=== PATIENT | female | born 1975 | race Caucasian/White ===

== ENCOUNTER 2017-04-07 13:08 | Emergency (ER) | payer SELFPAY ==
[2017-04-07 13:18] VITALS: BP 152/86; PULSE 90; TEMP 98.8; BMI 34.9
--- NOTE | 2017-04-07 14:00 | PDOC ---
History of Present Illness - General Chief Complaint: Abscess Boil Stated Complaint: BLEEDING CYST Time Seen by Provider: 04/07/17 13:22 History Source: Patient - History of Present Illness Timing/Duration: reports: week Location: reports: other (gluteus) Past History - Past Medical History Allergies/Adverse Reactions: Allergies Allergy/AdvReac Type Severity Reaction Status Date / Time No Known Allergies Allergy Verified 04/07/17 13:17 Home Medications: Ambulatory Orders Atorvastatin Ca [Lipitor] 10 mg PO HS 04/07/17 Clindamycin [Cleocin -] 300 mg PO Q6HPO #28 capsule 04/07/17 Insulin Glargine,Hum.rec.anlog [Lantus (10mL VIAL) -] 100 units SQ ASDIR Insulin Lispro [Humalog] 100 units SQ ASDIR 04/07/17 Metformin HCl 500 mg PO ASDIR 04/07/17 Metoprolol Tartrate 25 mg PO ASDIR 04/07/17 Pioglitazone HCl [Actos] 15 mg PO DAILY 04/07/17 Cardiac Disorders: Yes Diabetes: Yes - Surgical History Appendectomy: Yes GI Surgery: Yes - Psycho/Social/Smoking Cessation Hx Suicidal Ideation: No Smoking History: Never smoked Information on smoking cessation initiated: No Review of Systems - Review of Systems Constitutional: No: Chills, Fever *Physical Exam - Vital Signs Last Vital Signs Temp Pulse Resp BP Pulse Ox 98.8 F 90 18 152/86 99 04/07/17 13:14 04/07/17 13:14 04/07/17 13:14 04/07/17 13:14 04/07/17 13:14 - Physical Exam General Appearance: Yes: Appropriately Dressed. No: Apparent Distress HEENT: positive: Normal Voice Neck: positive: Supple Respiratory/Chest: negative: Respiratory Distress Integumentary: positive: Dry, Warm, Other (2x2cm draining abscess, no large induration, no surrounding erythema) Neurologic: positive: Fully Oriented, Alert, Normal Mood/Affect Medical Decision Making - Medical Decision Making 04/07/17 13:54 41 yo F, h/o IDDM, recurrent abscesses, p/w draining abscess to R gluteus x 1 week. Here for eval at urging of her family per pt. Denies any sig pain, f/c. See exam Draining abscesses to R gluteus No surrounding erythema -Local wound care and dressing -dc a/ abx given DM and complicated abscess in the past -Tetanus UTD -wound check in 48 hrs 04/07/17 14:02 *DC/Admit/Observation/Transfer Diagnosis at time of Disposition: Gluteal abscess - Discharge Dispostion Disposition: HOME Condition at time of disposition: Good - Prescriptions Prescriptions: Clindamycin [Cleocin -] 300 mg PO Q6HPO #28 capsule - Patient Instructions Printed Discharge Instructions: DI for Skin Abscess Additional Instructions: Take antibiotics as directed and return for wound check in 2 days
== END 2017-04-07 13:56 | disposition home or self-care (01) ==
LOC: JERFT 13:08
DX: L02.31 Cutaneous abscess of buttock (principal); E11.9 Type 2 diabetes mellitus without complications; Z79.4 Long term (current) use of insulin; Z79.84 Long term (current) use of oral hypoglycemic drugs
CPT/HCPCS: 99281-25

== ENCOUNTER 2017-04-10 15:35 | Emergency (ER) | payer SELFPAY ==
[2017-04-10 15:39] VITALS: BP 121/67; PULSE 93; TEMP 98; BMI 34.9
--- NOTE | 2017-04-10 16:37 | PDOC ---
History of Present Illness - General Chief Complaint: Revisit,Wound Recheck Stated Complaint: FOLLOW-UP/ WOUND CARE Time Seen by Provider: 04/10/17 15:55 History Source: Patient Exam Limitations: No Limitations - History of Present Illness Initial Comments: 04/10/17 16:36 Patient is a 41-year-old female with history of insulin-dependent diabetes, who presents to the emergency department for a wound check. Patient was seen 2 days ago for incision and drainage of a left gluteal fold abscess. Patient states that she feels much better since having the I&D done. Reports mild drainage from the wound that has slowed since Sunday. Denies fevers, chills. Patient states she is taking her antibiotic as prescribed. Past History - Travel Traveled outside of the country in the last 30 days: No Close contact w/someone who was outside of country & ill: No - Past Medical History Allergies/Adverse Reactions: Allergies Allergy/AdvReac Type Severity Reaction Status Date / Time No Known Allergies Allergy Verified 04/10/17 15:39 Home Medications: Ambulatory Orders Atorvastatin Ca [Lipitor] 10 mg PO HS 04/07/17 Clindamycin [Cleocin -] 300 mg PO Q6HPO #28 capsule 04/07/17 Insulin Glargine,Hum.rec.anlog [Lantus (10mL VIAL) -] 100 units SQ ASDIR Insulin Lispro [Humalog] 100 units SQ ASDIR 04/07/17 Metformin HCl 500 mg PO ASDIR 04/07/17 Metoprolol Tartrate 25 mg PO ASDIR 04/07/17 Pioglitazone HCl [Actos] 15 mg PO DAILY 04/07/17 Cardiac Disorders: Yes (3 stents, [place]) Diabetes: Yes Other medical history: Arthritis - Surgical History Appendectomy: Yes Cardiac Surgery: Yes GI Surgery: Yes - Psycho/Social/Smoking Cessation Hx Suicidal Ideation: No Smoking History: Never smoked Information on smoking cessation initiated: No Hx Alcohol Use: No Drug/Substance Use Hx: No Substance Use Type: None Review of Systems - Review of Systems Able to Perform ROS?: Yes Is the patient limited Hungarian proficient: No Constitutional: No: Chills, Fever, Malaise Integumentary: No: Erythema, Pruritus, Rash *Physical Exam - Vital Signs Last Vital Signs Temp Pulse Resp BP Pulse Ox 98 F 93 H 18 121/67 99 04/10/17 15:37 04/10/17 15:37 04/10/17 15:37 04/10/17 15:37 04/10/17 15:37 - Physical Exam General Appearance: Yes: Nourished, Appropriately Dressed. No: Apparent Distress Integumentary: positive: Dry, Warm, Other (2 cm linear incision on the left gluteal fold appears clean, with pink edges, with no purulent drainage. Wound is open and covered with a 2 x 2 gauze. Wound is healing well at this time.). negative: Erythema, Moist, Rash Neurologic: positive: crate maker II-XII NML intact, Fully Oriented, Alert, Normal Mood/ Affect, Normal Response, Motor Strength 03/16 Medical Decision Making - Medical Decision Making 04/10/17 17:01 Patient is an insulin-dependent diabetic who presents to the emergency department for a wound check after an incision and drainage 2 days ago. The wound appears clean with no active drainage. Patient is still taking her antibiotics at this time. Nothing further needs to be done at this time. Instructed patient to keep the area clean and dry and covered. Patient is to continue her antibiotics and follow up with her primary care doctor in 1 week. Patient was instructed on signs of infection including fevers, chills, purulent drainage understands if she has any of the she is to return to the emergency department. Patient understands all discharge instructions and all questions were answered at this time. *DC/Admit/Observation/Transfer Diagnosis at time of Disposition: Wound check, abscess - Discharge Dispostion Disposition: HOME Condition at time of disposition: Stable Admit: No - Referrals Referrals: STAFF,NOT ON [Primary Care Provider] - - Patient Instructions Printed Discharge Instructions: DI for Skin Abscess Additional Instructions: Continue to take your antibiotics as prescribed. Your abscess is healing well. Continue to keep the area covered, clean and dry. Return to the ED if you have any signs of infection including, fevers, chills, nausea, vomiting, or any changes in your symptoms.
== END 2017-04-10 16:41 | disposition home or self-care (01) ==
LOC: JERFT 15:35
DX: Z09 Encounter for follow-up examination after completed treatment for conditions other than malignant neoplasm (principal); L02.31 Cutaneous abscess of buttock; E11.9 Type 2 diabetes mellitus without complications; Z79.4 Long term (current) use of insulin; Z79.84 Long term (current) use of oral hypoglycemic drugs
CPT/HCPCS: 99281-25

== ENCOUNTER 2017-05-10 12:17 | Observation (INO) | payer SELFPAY ==
[2017-05-10 12:21] VITALS: BMI 34.9
[2017-05-10] MEDS ORDERED: ASPIRIN 81 MG CHEWABLE TABLETS PO ONE (12:52)
--- NOTE | 2017-05-10 13:26 | PDOC ---
History of Present Illness - General History Source: Patient Exam Limitations: No Limitations <Juany Giron - Last Filed: 05/10/17 14:34> <Daniel Clarke - Last Filed: 05/11/17 09:19> - General Chief Complaint: Chest Pain Stated Complaint: CHEST PAIN Time Seen by Provider: 05/10/17 12:52 - History of Present Illness Initial Comments: 05/10/17 14:35 Patient is a 41 year old female with a significant past medical history of IDDM , [place], CAD with [address] since 2014 who presents to the ED with chest pain for 4 days. Patient describes the pain as sharp, twisting, 8/10 in severity , intermittent and non pleuritic. She denies any alleviating factors. Patient states that she has never experienced the following symptoms before this is different from her panic attacks. Patient states that on Sunday she was walking to the bus stop as she developed twisting chest pain that lasted for 15 minutes , yesterday she developed chest pain while cleaning her house that lasted for 1 hour, today she developed the cp while in the shower that is still ongoing while in the ED. She reports SOB and increased weakness. She denies any back pain, nausea, vomiting, diarrhea, diaphoresis, fever, chills or palpitations. PSH:Appendectomy, uterine polyps SH: Smoker (2 cigarettes a day now smoker for 20 years), she denies alcohol use or IVDU. FH: father [place] 45, mother [place] (Juany Giron) Past History <LesterromanJuany ferreira - Last Filed: 05/10/17 14:34> - Past Medical History Cardiac Disorders: Yes (3 stents, [place]) Diabetes: Yes - Surgical History Appendectomy: Yes Cardiac Surgery: Yes (3 stents) GI Surgery: Yes (polyps uterus) - Psycho/Social/Smoking Cessation Hx Suicidal Ideation: No Smoking History: Current every day smoker Number of Cigarettes Smoked Daily: 2 Information on smoking cessation initiated: Yes 'Breaking Loose' booklet given: 05/10/17 Hx Alcohol Use: No Drug/Substance Use Hx: No Substance Use Type: None <Daniel Clarke - Last Filed: 05/11/17 09:19> - Past Medical History Allergies/Adverse Reactions: Allergies Allergy/AdvReac Type Severity Reaction Status Date / Time No Known Allergies Allergy Verified 05/10/17 12:21 Home Medications: Ambulatory Orders Aspirin [ASA -] 81 mg PO DAILY 05/10/17 Clopidogrel Bisulfate [Plavix -] 75 mg PO DAILY 05/10/17 Enalapril Maleate 5 mg PO DAILY 05/10/17 Glipizide 5 mg PO DAILY 05/10/17 Insulin Glargine,Hum.rec.anlog [Lantus (nf)] 50 units SQ HS 05/10/17 Insulin Lispro [Humalog] 15 unit SQ TID 05/10/17 Metoprolol Succinate [Toprol Xl -] 25 mg PO DAILY 05/10/17 Pioglitazone HCl [Actos] 45 mg PO DAILY 05/10/17 Simvastatin 20 mg PO HS 05/10/17 Review of Systems - Review of Systems Able to Perform ROS?: Yes <Juany Giron - Last Filed: 05/10/17 14:34> <Daniel Clarke - Last Filed: 05/11/17 09:19> - Review of Systems Comments:: 05/10/17 14:35 CONSTITUTIONAL: No reported: Fever, Chills, Diaphoresis, Generalized Weakness, Malaise, Loss of Appetite HEENT: No reported: Rhinorrhea, Nasal Congestion, Throat Pain, Throat Swelling, Difficulty Swallowing, Mouth Swelling, Ear Pain, Eye Pain, Visual Changes CARDIOVASCULAR: Reported: chest pain No reported: Syncope, Palpitations, Irregular Heart Rate, Lightheadedness, Peripheral Edema RESPIRATORY: No reported: Cough, Shortness of Breath, SOB with Exertion, Orthopnea, Wheezing , Stridor, Hemoptysis GASTROINTESTINAL: No reported: Abdominal pain, Abdominal Distension, Nausea, Vomiting, Diarrhea, Constipation, Melena, Hematochezia GENITOURINARY: No reported: Dysuria, Frequency, Urgency, Hesitancy, Flank Pain, Genital Pain MUSCULOSKELETAL: No reported: Myalgia, Arthralgia, Joint Swelling, Back pain, Neck Pain SKIN: No reported: Rash, Itching, Pallor HEMEATOLOGIC/IMMUNOLOGIC: No reported: Easy Bleeding, Easy Bruising, Lymphadenopathy, Frequent infections ENDOCRINE: No reported: Unexplained Weight Gain, Unexplained Weight Loss, Heat Intolerance , Cold Intolerance NEUROLOGIC: No reported: Headache, Focal Weakness, Paresthesias, Vertigo, Lightheadedness, Unsteady Gait, Seizure, Mental Status Changes, Incontinence PSYCHIATRIC: No reported: Anxiety, Depression (Juany Giron) *Physical Exam <Juany Giron - Last Filed: 05/10/17 14:34> <Daniel Clarke - Last Filed: 05/11/17 09:19> - Vital Signs Last Vital Signs Temp Pulse Resp BP Pulse Ox 98.4 F 92 H 20 142/77 100 05/11/17 07:31 05/11/17 07:31 05/11/17 07:35 05/11/17 07:31 05/11/17 07:35 - Physical Exam Comments: 05/10/17 14:35 GENERAL: The patient is awake, alert, and fully oriented, Nontoxic - in no acute distress. HEAD: Normocephalic, atraumatic. EYES: extraocular movements intact, sclera anicteric, conjunctiva clear. ENT: Normal voice, Moist mucous membranes. NECK: Normal range of motion, supple LUNGS: Breath sounds equal, clear to auscultation bilaterally. No wheezes, no rhonchi, no rales. HEART: Regular rate and rhythm, normal S1 and S2 without murmur, rub or gallop. ABDOMEN: Soft, nontender, normoactive bowel sounds. No guarding, no rebound. . No CVA tenderness EXTREMITIES: Normal range of motion, no edema. No clubbing or cyanosis. No cords, erythema, or tenderness. NEUROLOGICAL: No facial assymetry, Normal speech, PSYCH: Normal mood, normal affect. SKIN: Warm, Dry, normal turgor (Juany Giron) Heart Score/ECG Review <Juany Giron - Last Filed: 05/10/17 14:34> - History History: Moderately suspicious - Electrocardiogram EKG: Non specific repolarization disturbance - Age Age: </= 45 - Risk Factors Risk Factors Heart Score: Yes Hx Diabetes, Yes Smoking History, Yes Hx Obesity Based on the list above the patient has:: >/=3 risk factors or Hx atherosclerotic disease - Troponin Troponin: </= normal limit - Score Heart Score - Total: 4 <Daniel Clarke - Last Filed: 05/11/17 09:19> - ECG Impressions Comment:: 05/10/17 14:26 Twelve-lead EKG was performed and reviewed by me. There is normal sinus rhythm with a normal rate. Rate of 97 The axis is normal. The intervals are normal. There is normal R wave progression [id number] noted No old EKGs for comparison (Daniel Clarke) ED Treatment Course - LABORATORY CBC & Chemistry Diagram: 05/10/17 13:24 05/10/17 13:24 <Juany Giron - Last Filed: 05/10/17 14:34> - LABORATORY CBC & Chemistry Diagram: 05/11/17 05:35 05/11/17 06:00 <Daniel Clarke - Last Filed: 05/11/17 09:19> - ADDITIONAL ORDERS Additional order review: Laboratory Results 05/10/17 05/10/17 05/10/17 22:19 21:40 21:40 POC Glucometer 458 Creatine Kinase 32 Troponin I 0.02 Beta HCG, Quant < 1.0 05/10/17 05/10/17 05/10/17 22:19 18:09 13:24 RBC 4.47 MCV 87.6 MCHC 32.5 RDW 16.0 H MPV 9.3 Neutrophils % 65.7 Lymphocytes % 23.8 Monocytes % 6.0 Eosinophils % 3.4 Basophils % 1.1 POC Glucometer 458 > 400 - RADIOLOGY Radiology Studies Ordered: Category Date Time Status CHEST X-RAY PORTABLE* [RAD] Stat Radiology 05/10/17 12:52 Completed - Medications Given in the ED: ED Medications Discontinued Medications Generic Name Dose Route Start Last Admin Trade Name Freq PRN Reason Stop Dose Admin Aspirin 162 mg 05/10/17 12:52 05/10/17 13:36 Asa - PO 05/10/17 12:53 162 mg ONCE ONE Administration Atorvastatin Calcium 40 mg 05/10/17 22:00 05/10/17 21:54 Lipitor - PO 40 mg HS RALF Administration Clopidogrel Bisulfate 75 mg 05/10/17 20:00 05/10/17 21:53 Plavix - PO 75 mg DAILY RALF Administration Sodium Chloride 1,000 mls @ 1,000 mls/hr 05/10/17 14:22 05/10/17 14:23 Normal Saline - IV 05/10/17 15:21 1,000 mls/hr .Q1H ONE Administration Insulin Human Regular 8 units 05/10/17 14:22 05/10/17 14:23 Novolin R Vial *For Ivpush Or Iv Drip Only* IVPUSH 05/10/17 14:23 8 units ONCE ONE Administration Insulin Human Regular 8 units 05/10/17 18:10 05/10/17 18:12 Novolin R Vial *For Ivpush Or Iv Drip Only* SQ 05/10/17 18:11 8 units ONCE ONE Administration Metoprolol Succinate 25 mg 05/10/17 20:00 05/10/17 21:54 Toprol Xl - PO 25 mg DAILY RALF Administration Medical Decision Making <Juany Giron - Last Filed: 05/10/17 14:34> <Daniel Clarke - Last Filed: 05/11/17 09:19> - Medical Decision Making 05/10/17 14:26 41y F hx of CAD (3 stents), IDDM, [place], presents with several days of intermittent exertional cp. pt appears well on exam with unremarkable exam vitals noted for mild tachycardia 05/10/17 14:[address] lock agreed with admission for further mangaement stable for tele will consult dr. nguyễn Case discussed in detail with admitting physician including history, physical exam and ancillary studies. Admitting physician has assumed care for the patient, will follow all pending diagnostics and will complete the evaluation and treatment. A portion of this note was documented by scribe services under my direction. I have reviewed the details of the note, within reason, and agree with the documentation with the following case summary and management plan written by me was notified by dr. nguyễn that dr. evangelista comes to [facility] we call his service. case dw dr. barreto (cardiology, covering for dr. Evangelista/Kenneth) agree with management an drequested stress tomorrow A portion of this note was documented by scribe services under my direction. I have reviewed the details of the note, within reason, and agree with the documentation with the following case summary and management plan written by me (Daniel Clarke) *DC/Admit/Observation/Transfer <Juany Giron - Last Filed: 05/10/17 14:34> - Discharge Dispostion Admit: Yes <Daniel Clarke - Last Filed: 05/11/17 09:19> Diagnosis at time of Disposition: Chest pain Qualifiers: Chest pain type: unspecified Qualified Code(s): R07.9 - Chest pain, unspecified - Discharge Dispostion Condition at time of disposition: Stable - Referrals - Patient Instructions - Attestations Scribe Attestion: 05/10/17 14:35 Documentation prepared by STEPHANIA Wilcox, acting as medical technicians for Daniel Clarke MD. (Juany Giron)
[2017-05-10] MEDS ORDERED: ASPIRIN 81 MG CHEWABLE TABLETS ONE (13:30)
[2017-05-10 13:45] LABS: BASOPHIL 1.1 % (0-2.0); EOSINOPHIL 3.4 % (0-4.5); MCH 28.5 pg (25.7-33.7); MCHC 32.5 g/dl (32.0-36.0); MEAN CELL VOLUME 87.6 fl (80-96); MEAN PLT VOLUME 9.3 fl (7.5-11.1); NEUTROPHILS 65.7 % (42.8-82.8); PLATELET COUNT 181 K/MM3 (134-434); WHITE BLOOD COUNT 9.2 K/mm3 (4.0-10.0)
[2017-05-10 14:07] LABS: ALBUMIN 3.2 g/dl (3.4-5.0); ANION GAP 12 (8-16); CO2 25 mmol/L (21-32); CREATININE 0.8 mg/dL (0.55-1.02); MAGNESIUM 1.9 mg/dL (1.8-2.4); SGOT/AST 37 U/L (15-37); SGPT/ALT 81 U/L (12-78)
[2017-05-10 14:08] LABS: INR 0.93 (0.82-1.09); PROTHROMBIN TIME (PATIENT) 10.2 SEC (9.98-11.88)
[2017-05-10 14:13] LABS: ALK PHOS 180 U/L (45-117); BILIRUBIN,TOTAL 0.6 mg/dL (0.2-1.0); TOT PROT 7.3 g/dl (6.4-8.2); TROPONIN I 0.02 ng/ml (0.00-0.05)
[2017-05-10 14:22] LABS: GLUCOSE,RANDOM 538 mg/dL (74-106)
[2017-05-10] MEDS ORDERED: SODIUM CHLORIDE 1,000 ML IV ONE (14:22)
[2017-05-10] MEDS ORDERED: INSULIN REGULAR HUMAN 100 UNITS/ML *VIAL IVPUSH ONE (14:22)
--- NOTE | 2017-05-10 14:59 | EKG ---
Test Reason : Blood Pressure : / mmHG Vent. Rate : 097 BPM Atrial Rate : 097 BPM P-R Int : 126 ms QRS Dur : 080 ms QT Int : 352 ms P-R-T Axes : 053 042 010 degrees QTc Int : 447 ms NORMAL SINUS RHYTHM POSSIBLE LEFT ATRIAL ENLARGEMENT BORDERLINE ECG NO PREVIOUS ECGS AVAILABLE Confirmed by DELANO HOOD, NOREEN ([id number]) on 05/10/2017 2:58:50 PM Referred By: Confirmed By:NOREEN WICK MD
[2017-05-10] MEDS ORDERED: INSULIN REGULAR HUMAN 100 UNITS/ML *VIAL ONE ×2 (17:36→18:14)
--- NOTE | 2017-05-10 17:54 | CON.CARD ---
Cardiology Consult (text) - Consultation Consultation Note: CC: CP 41 yo smoker with h/o uncontrolled IDDM (dx at 31 yo), [place], CAD with [address] since 2014 p/w chest pain Noted to be severely hyperglycemic here. 3 episodes over the past 4 days. 15 min - 1 hr. One while walking, two while taking shower. Sharp discomfort. non-radiating. non-pleuritic, non-positional + assoc sob. Did not check her bp during episode. no home bp checks. no recent viral infection, poor po intake. No orthopnea, pnd, le edema, palps, dizziness, bleeding transient neurologic sx' s She denies nausea, vomiting, diarrhea, diaphoresis, fever, chills, sweats, headache, cough, congestion. Denies missing doses of ASA, plavix. (although has not taken any of her meds today). Currently cp free. Cards: Dr. Aristeo Reese PMHx: per hpi PSH:Appendectomy, uterine polyps SH: Smoker (2 cigarettes a day now smoker for 20 years), she denies alcohol use or IVDU. FH: father [place] 45, mother [place] ros: per hpi Ambulatory Orders Aspirin [ASA -] 81 mg PO DAILY 05/10/17 Clopidogrel Bisulfate [Plavix -] 75 mg PO DAILY 05/10/17 Enalapril Maleate 5 mg PO DAILY 05/10/17 Glipizide 5 mg PO DAILY 05/10/17 Insulin Glargine,Hum.rec.anlog [Lantus (nf)] 50 units SQ HS 05/10/17 Insulin Lispro [Humalog] 15 unit SQ TID 05/10/17 Metoprolol Succinate [Toprol Xl -] 25 mg PO DAILY 05/10/17 Pioglitazone HCl [Actos] 45 mg PO DAILY 05/10/17 Simvastatin 20 mg PO HS 05/10/17 Vital Signs - 24 hr 05/10/17 12:20 Temperature 97.9 F Pulse Rate 109 H Respiratory 18 Rate Blood Pressure 144/78 O2 Sat by Pulse 99 Oximetry (%) Intake & Output 05/08/17 05/09/17 05/10/17 05/11/17 07:59 07:59 07:59 07:59 Weight 230 lb nad, calm jvd flat, neck supple CTAB, nl effort tachycardic, regular. nl s1, s2 no mrg + bs soft nt nd obese ext without e/c/c + dp/pt aaox3 no carotid bruits no jaundice, diaphoresis CBC, BMP 05/10/17 13:24 05/10/17 13:24 Laboratory Tests 05/10/17 05/10/17 05/10/17 13:24 13:24 14:27 INR 0.93 D-Dimer < 200 Magnesium 1.9 Total Bilirubin 0.6 AST 37 ALT 81 H Alkaline Phosphatase 180 H Creatine Kinase 33 Troponin I 0.02 Albumin 3.2 L EKG: wnl tele: sr/sinustach. one atrial run. 41 yo smoker with h/o uncontrolled CAD s/p 3 stents 2014, HTN, IDDM (dx at 31 yo) p/w chest pain CP - currently cp free - high risk with known CAD. original stents placed after abnormal ekg --> stress --> cath. Was asx. - EKG wnl. first CE's wnl. Con't DIANN, tele - Echo - stress test in am. 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 - resume asa, plavix (will give dose today), statin (will uptitrate dose), BB, ACEI HTN - resume metoprolol, enalapril. monitor. tobacco - cessation counseling Hyperglycemia - Dm mgm't per pmd
[2017-05-10] MEDS ORDERED: INSULIN REGULAR HUMAN 100 UNITS/ML *VIAL SQ ONE (18:10)
[2017-05-10] MEDS ORDERED: CLOPIDOGREL BISULFATE 75 MG TABLET (FP) PO SCH (20:00)
[2017-05-10] MEDS ORDERED: METOPROLOL SUCCINATE 25 MG TAB.SR.24H (FP) PO SCH (20:00)
[2017-05-10] MEDS ORDERED: ATORVASTATIN CA 40 MG TABLET (FP) PO SCH (22:00)
[2017-05-10 22:32] LABS: TROPONIN I 0.02 ng/ml (0.00-0.05)
[2017-05-10] MEDS ORDERED: ATORVASTATIN CA 10 MG TABLET (FP) PO SCH (22:45)
[2017-05-10] MEDS ORDERED: INSULIN DETEMIR 100 UNITS/ML MDV SQ SCH (22:45)
[2017-05-10] MEDS: INSULIN SLIDING SCALE (NOVOLOG) 1 VIAL SQ SCH (23:02)
[2017-05-11] MEDS ORDERED: INSULIN SLIDING SCALE (NOVOLOG) 1 VIAL SQ SCH (07:00)
[2017-05-11] MEDS ORDERED: metFORMIN HCL 500 MG TABLET (FP) PO SCH (07:00)
[2017-05-11] MEDS ORDERED: glipiZIDE 5 MG TABLET (FP) PO SCH (07:00)
[2017-05-11] MEDS: INSULIN SLIDING SCALE (NOVOLOG) 1 VIAL SQ SCH ×3 (07:26→15:55)
[2017-05-11 07:37] LABS: BASOPHIL 0.2 % (0-2.0); EOSINOPHIL 4.6 % (0-4.5); MCH 28.8 pg (25.7-33.7); MCHC 33.4 g/dl (32.0-36.0); MEAN CELL VOLUME 86.4 fl (80-96); MEAN PLT VOLUME 9.7 fl (7.5-11.1); NEUTROPHILS 54.7 % (42.8-82.8); PLATELET COUNT 177 K/MM3 (134-434); WHITE BLOOD COUNT 8.6 K/mm3 (4.0-10.0)
[2017-05-11 08:33] LABS: ALBUMIN 2.8 g/dl (3.4-5.0); ANION GAP 10 (8-16); CALCIUM 8.5 mg/dL (8.5-10.1); CO2 25 mmol/L (21-32)
[2017-05-11 08:42] LABS: ALK PHOS 147 U/L (45-117); BILIRUBIN,TOTAL 0.6 mg/dL (0.2-1.0); CREATININE 0.6 mg/dL (0.55-1.02); SGOT/AST 48 U/L (15-37); SGPT/ALT 68 U/L (12-78); TOT PROT 6.4 g/dl (6.4-8.2); TROPONIN I < 0.02 ng/ml (0.00-0.05)
[2017-05-11 09:15] LABS: GLUCOSE,RANDOM 311 mg/dL (74-106)
[2017-05-11] MEDS ORDERED: CLOPIDOGREL BISULFATE 75 MG TABLET (FP) PO SCH (10:00)
[2017-05-11] MEDS ORDERED: METOPROLOL SUCCINATE 25 MG TAB.SR.24H (FP) PO SCH (10:00)
[2017-05-11] MEDS ORDERED: HEPARIN NA (PORCINE) 5,000 UNITS/ML 1ML VIAL SQ SCH (10:00)
[2017-05-11] MEDS ORDERED: ASPIRIN 81 MG CHEWABLE TABLETS PO SCH (10:00)
[2017-05-11] MEDS ORDERED: ASPIRIN COATED 81 MG TABLET.EC PO SCH (10:00)
[2017-05-11] MEDS ORDERED: ENALAPRIL MALEATE 5 MG TABLET (FP) PO SCH ×2 (10:00)
--- NOTE | 2017-05-11 12:07 | HP ---
Admitting History and Physical - Smoking History Smoking history: Current every day smoker Aproximately how many cigarettes per day: 2 - Alcohol/Substance Use Hx Alcohol Use: No Home Medications - Allergies Allergies/Adverse Reactions: Allergies Allergy/AdvReac Type Severity Reaction Status Date / Time No Known Allergies Allergy Verified 05/10/17 12:21 - Home Medications Home Medications: Ambulatory Orders Aspirin [ASA -] 81 mg PO DAILY 05/10/17 Clopidogrel Bisulfate [Plavix -] 75 mg PO DAILY 05/10/17 Enalapril Maleate 5 mg PO DAILY 05/10/17 Glipizide 5 mg PO DAILY 05/10/17 Insulin Glargine,Hum.rec.anlog [Lantus (nf)] 50 units SQ HS 05/10/17 Insulin Lispro [Humalog] 15 unit SQ TID 05/10/17 Metoprolol Succinate [Toprol Xl -] 25 mg PO DAILY 05/10/17 Pioglitazone HCl [Actos] 45 mg PO DAILY 05/10/17 Simvastatin 20 mg PO HS 05/10/17 Physical Examination Vital Signs: Vital Signs Temperature 98.4 F 05/11/17 07:31 Pulse Rate 92 H 05/11/17 07:31 Respiratory Rate 20 05/11/17 07:35 Blood Pressure 142/77 05/11/17 07:31 O2 Sat by Pulse Oximetry (%) 100 05/11/17 07:35 Labs: CBC, BMP 05/11/17 05:35 05/11/17 06:00
--- NOTE | 2017-05-11 13:56 | CON.CARD ---
Consult Consult Specialty:: cardiology Referred by:: Kieran Fernández Reason for Consultation:: Chest pain - History of Present Illness Chief Complaint: Chest pain History of Present Illness: The patient is a 41-year-old female, former smoker, with history of diabetes, hypertension, hyperlipidemia, coronary artery disease, now presenting with exertional chest pains. The patient ruled out for myocardial infarction. She is currently comfortable and symptom free. Cardiac catheterization 01/14/2015 showed significant mid LAD disease and occluded right coronary artery with right to left collaterals. The patient received stens to the proximal and mid LAD. On 01/25/2015 the patient was readmitted to the CCU following stenting of the RCA complicated by dissection. There was also a perforation of the marginal branch. This sealed on its own. Earlier today the patient had a nuclear stress test which showed a small and mild, reversible defect, of the basal inferior wall. - History Source History Provided By: Patient, Medical Record Limitations to Obtaining History: No Limitations - Past Medical History Cardio/Vascular: Yes: CAD, HTN - Alcohol/Substance Use Hx Alcohol Use: No - Smoking History Smoking history: Former smoker Have you smoked in the past 12 months: No Aproximately how many cigarettes per day: 2 Home Medications - Allergies Allergies/Adverse Reactions: Allergies Allergy/AdvReac Type Severity Reaction Status Date / Time No Known Allergies Allergy Verified 05/10/17 12:21 - Home Medications Home Medications: Ambulatory Orders Aspirin [ASA -] 81 mg PO DAILY 05/10/17 Clopidogrel Bisulfate [Plavix -] 75 mg PO DAILY 05/10/17 Enalapril Maleate 5 mg PO DAILY 05/10/17 Glipizide 5 mg PO DAILY 05/10/17 Insulin Glargine,Hum.rec.anlog [Lantus (nf)] 50 units SQ HS 05/10/17 Insulin Lispro [Humalog] 15 unit SQ TID 05/10/17 Metoprolol Succinate [Toprol Xl -] 25 mg PO DAILY 05/10/17 Pioglitazone HCl [Actos] 45 mg PO DAILY 05/10/17 Simvastatin 20 mg PO HS 05/10/17 Review of Systems - Review of Systems Constitutional: reports: No Symptoms Eyes: reports: No Symptoms HENT: reports: No Symptoms Neck: reports: No Symptoms Cardiovascular: reports: Chest Pain Respiratory: reports: No Symptoms Gastrointestinal: reports: No Symptoms Genitourinary: reports: No Symptoms Breasts: reports: No Symptoms Reported Musculoskeletal: reports: No Symptoms Integumentary: reports: No Symptoms Neurological: reports: No Symptoms Endocrine: reports: No Symptoms Hematology/Lymphatic: reports: No Symptoms Psychiatric: reports: No Symptoms - Risk Factors Known Risk Factors: Yes: Diabetes Mellitus, Family History, Hypercholesterolemia , Hypertension Vital Signs: Vital Signs Temperature 98.4 F 05/11/17 07:31 Pulse Rate 92 H 05/11/17 07:31 Respiratory Rate 20 05/11/17 07:35 Blood Pressure 142/77 05/11/17 07:31 O2 Sat by Pulse Oximetry (%) 100 05/11/17 07:35 Constitutional: Yes: Well Nourished, No Distress, Calm Eyes: Yes: WNL HENT: Yes: WNL Neck: Yes: WNL Respiratory: Yes: WNL Gastrointestinal: Yes: WNL Cardiovascular: Yes: WNL, Regular Rate and Rhythm JVD: No Carotid Bruit: No PMI: Non-Displaced Heart Sounds: Yes: S1, S2 Musculoskeletal: Yes: WNL Extremities: Yes: WNL Edema: No Peripheral Pulses: 2+ Left Carotid, 2+ Right Carotid, 2+ Left Femoral, 2+ Right Femoral, 2+ Left Popliteal, 2+ Right Popliteal Integumentary: Yes: WNL Neurological: Yes: WNL ...Motor Strength: WNL Psychiatric: Yes: WNL - Other Data Labs, Other Data: CBC, BMP 05/11/17 05:35 05/11/17 06:00 INR, PTT INR 0.93 (0.82-1.09) 05/10/17 13:24 Troponin, BNP 05/11/17 06:00 Troponin I < 0.02 Troponin, BNP 05/11/17 06:00 Troponin I < 0.02 Assessment/Plan 41-year-old female with known coronary artery disease, prior stents of the LAD and RCA, now presenting with exertional chest pains which are new. The patient is currently status post an exercise stress test. It showed small and mild reversible defect of the basal inferior wall. There is no need to pursue cardiac catheterization at this point. We'll attempt to maximize her medical regimen. Please increase Toprol-XL from 25-50 mg daily. Start Imdur 30 mg daily. Continue the other medications as currently. There is no need for further cardiac workup at this point. I believe that the patient is stable for discharge. Please call us PRN.
[2017-05-11 14:42] VITALS: BP 109/65; PULSE 91; TEMP 98.9
[2017-05-11] MEDS ORDERED: ATORVASTATIN CA 10 MG TABLET (FP) PO SCH (22:00)
== END 2017-05-11 16:23 | disposition home or self-care (01) ==
LOC: JER 12:17 → JERBED 14:55 → UNDOADMOB 14:55 → J4W 19:15 → JERBED 19:15 → OBSVTOIN 22:33 → INTOOBSV 22:33 → J4W 22:33
PROVIDERS: ADMIT Internal Medicine; ATTEND Internal Medicine
CPT/HCPCS: 36415; 71010-TC; 78452-TC; 80053; 82550; 83036; 83735; 84484; 84702; 85025; 85379; 85610; 93005; 93010; 93017; 93306-TC; 99283-25; A9502; G0378; J1644

== ENCOUNTER 2019-07-16 11:56 | Emergency (ER) | payer OTHER ==
[2019-07-16 12:16] VITALS: BP 119/68; PULSE 99; TEMP 99; BMI 32.4
--- NOTE | 2019-07-16 12:27 | PDOC ---
History of Present Illness - General Chief Complaint: Abscess Boil Stated Complaint: HEAD PAIN Time Seen by Provider: 07/16/19 12:17 - History of Present Illness Initial Comments: 07/16/19 12:26 43-year-old female with a past medical history of diabetes coronary artery disease presents for evaluation of a tender area on her scalp 2. Which has been present for about the last 2 weeks. She has no systemic symptoms. Past History - Past Medical History Allergies/Adverse Reactions: Allergies Allergy/AdvReac Type Severity Reaction Status Date / Time No Known Allergies Allergy Verified 05/10/17 12:21 Home Medications: Ambulatory Orders Aspirin [ASA -] 81 mg PO DAILY 05/10/17 Clopidogrel Bisulfate [Plavix -] 75 mg PO DAILY 05/10/17 Enalapril Maleate 5 mg PO DAILY 05/10/17 Glipizide 5 mg PO DAILY 05/10/17 Insulin Glargine,Hum.rec.anlog [Lantus (10mL VIAL) -] 50 units SQ HS 05/10/17 Insulin Lispro [Humalog] 15 unit SQ TID 05/10/17 Metoprolol Succinate [Toprol XL -] 25 mg PO DAILY 05/10/17 Pioglitazone HCl [Actos] 45 mg PO DAILY 05/10/17 Simvastatin 20 mg PO HS 05/10/17 Cephalexin [Keflex] 500 mg PO QID #40 capsule 07/16/19 Sulfamethoxazole/Trimethoprim [Bactrim Ds -] 1 tab PO BID #14 tablet 07/16/19 Cardiac Disorders: Yes (3 stents, [place]) Diabetes: Yes - Surgical History Appendectomy: Yes Cardiac Surgery: Yes (3 stents) GI Surgery: Yes (polyps uterus) - Suicide/Smoking/Psychosocial Hx Smoking History: Current every day smoker Have you smoked in the past 12 months: No Number of Cigarettes Smoked Daily: 5 Information on smoking cessation initiated: Yes 'Breaking Loose' booklet given: 05/10/17 Hx Alcohol Use: No Drug/Substance Use Hx: No Substance Use Type: None Review of Systems - Review of Systems Constitutional: No: Fever Integumentary: Yes: Lesions *Physical Exam - Vital Signs Last Vital Signs Temp Pulse Resp BP Pulse Ox 99 F 99 H 19 119/68 99 07/16/19 12:12 07/16/19 12:12 07/16/19 12:12 07/16/19 12:12 07/16/19 12:12 - Physical Exam Comments: 07/16/19 12:25 HEAD: NC/AT there are 2 areas of erythema. There is 1 larger nonfluctuant firm erythemic tender area on the anterior aspect of the right scalp and a small postulate on the left anterior scalp. Both are firm with mild surrounding erythema and mild induration and no fluctuance. There is no warmth. EYES: Conjuntiva clear MS: Full ROM in all joints without edema NEUROLOGIC: No gross sensory or motor deficits, NVID SKIN: Normal color and temperature no lesions or rashes Medical Decision Making - Medical Decision Making 07/16/19 12:25 Firm abscesses not ready to be drained yet encouraged warm compresses and paced patient on by mouth antibiotics *DC/Admit/Observation/Transfer Diagnosis at time of Disposition: Abscess - Discharge Dispostion Disposition: HOME Condition at time of disposition: Stable Decision to Admit order: No - Referrals Referrals: Andrew Hernandez MD [Staff Physician] - - Patient Instructions Additional Instructions: Please take the antibiotics as directed. Return to the emergency room for worsening symptoms. Follow-up with general surgery without fail in 1-2 days for further evaluation and treatment options. The warm compresses will help her abscess to forearm head and become softer where they can be drained or they will help dissolve the abscess - Post Discharge Activity
== END 2019-07-16 12:36 | disposition home or self-care (01) ==
LOC: JERFT 11:56
DX: L02.811 Cutaneous abscess of head [any part, except face] (principal); E11.9 Type 2 diabetes mellitus without complications; Z79.4 Long term (current) use of insulin; I25.10 Atherosclerotic heart disease of native coronary artery without angina pectoris; Z95.1 Presence of aortocoronary bypass graft; Z95.5 Presence of coronary angioplasty implant and graft; F17.210 Nicotine dependence, cigarettes, uncomplicated
CPT/HCPCS: 99281-25

== ENCOUNTER 2022-03-08 12:37 | Observation (INO) | payer OTHER ==
[2022-03-08] MEDS ORDERED: ACETAMINOPHEN 1000 MG/100 ML BAG IVPB ONE (13:46)
[2022-03-08] MEDS ORDERED: ACETAMINOPHEN INJECTION 100 ML IVPB ONE (14:06)
[2022-03-08 14:11] LABS: BASO % 0.2 % (0-2.0); EOS % 4.1 % (0-4.5); HEMATOCRIT 30.5 % (32.4-45.2); HEMOGLOBIN 9.7 GM/dL (10.7-15.3); LYMPH % 17.5 % (8-40); MCH 29.3 pg (25.7-33.7); MCHC 31.9 g/dl (32.0-36.0); MEAN CELL VOLUME 91.9 fl (80-96); MONO % 6.8 % (3.8-10.2); NEUT % 71.4 % (42.8-82.8); PLATELET COUNT 118 10^3/uL (134-434); RBC 3.32 M/mm3 (3.60-5.2); RDW 16.9 % (11.6-15.6); WHITE BLOOD COUNT 6.7 K/mm3 (4.0-10.0)
[2022-03-08 14:26] LABS: CHLORIDE 106 mmol/L (98-107); SODIUM 136 mmol/L (136-145)
[2022-03-08 14:27] LABS: CALCIUM 8.4 mg/dL (8.5-10.1)
[2022-03-08 14:28] LABS: ALBUMIN 2.8 g/dl (3.4-5.0); BLOOD UREA NITROGEN 10.7 mg/dL (7-18); GLUCOSE,RANDOM 185 mg/dL (74-106)
[2022-03-08 14:32] LABS: CREATININE 1.1 mg/dL (0.55-1.3); SGOT/AST 53 U/L (15-37); SGPT/ALT 34 U/L (13-61)
[2022-03-08 14:34] LABS: ANION GAP 5 MMOL/L (8-16); BILIRUBIN,TOTAL 0.6 mg/dL (0.2-1); CO2 25 mmol/L (21-32); TOT PROT 7.8 g/dl (6.4-8.2)
[2022-03-08 14:35] LABS: ALK PHOS 218 U/L (45-117)
[2022-03-08] MEDS ORDERED: ASPIRIN 81 MG CHEWABLE TABLETS PO ONE ×2 (16:40→16:41)
[2022-03-08] MEDS ORDERED: ASPIRIN 81 MG CHEWABLE TABLETS ONE (16:44)
[2022-03-08 20:30] LABS: EPI CELLS >36 /uL (0-25.1); HYALINE CASTS 2 /uL (0-3.1); URINE APPEARANCE CLEAR; URINE BACTERIA 29 /uL (0-1359); URINE BILIRUBIN NEGATIVE (NEGATIVE); URINE COLOR YELLOW; URINE GLUCOSE (UA) NEGATIVE (NEGATIVE); URINE KETONE NEGATIVE (NEGATIVE); URINE LEUK ESTERASE NEGATIVE (NEGATIVE); URINE NITRITE NEGATIVE (NEGATIVE); URINE PROTEIN 2+ (NEGATIVE); URINE RBC 12 /uL (0-23.9); URINE UROBILINOGEN 0.2 mg/dL (0.2-1.0); URINE WBC 15 /uL (0-25.8)
[2022-03-08] MEDS ORDERED: LIDOCAINE 5% TOPICAL PATCH TP SCH (22:00)
[2022-03-08] MEDS ORDERED: oxyCODONE HCL 5 MG TABLET ONE (22:01)
[2022-03-08] MEDS ORDERED: LIDOCAINE 5% TOPICAL PATCH ONE (22:01)
[2022-03-08] MEDS ORDERED: ACETAMINOPHEN 325 MG TABLET (FP) ONE (22:01)
[2022-03-08] MEDS: oxyCODONE HCL 5 MG TABLET PO PRN (22:04)
[2022-03-08] MEDS: ACETAMINOPHEN 325 MG TABLET (FP) PO PRN (22:05)
[2022-03-08] MEDS ORDERED: LOSARTAN POTASSIUM 25 MG TABLET PO ONE (23:13)
[2022-03-08] MEDS ORDERED: LOSARTAN POTASSIUM 50 MG TABLET ONE (23:23)
[2022-03-09] MEDS: INSULIN SLIDING SCALE (NOVOLOG) 1 VIAL SQ SCH ×5 (01:50→21:29)
[2022-03-09] MEDS: GABAPENTIN 300 MG CAPSULE PO SCH ×3 (05:52→21:28)
[2022-03-09] MEDS: LIDOCAINE PATCH REMOVAL MC SCH ×2 (05:53→21:31)
[2022-03-09] MEDS ORDERED: PNEUMOC 13-VAL CONJ-DIP CRM/PF 0.5 ML DISP.SYRIN IM ONE (06:35)
[2022-03-09 06:36] VITALS: BMI 33.6
[2022-03-09 07:38] LABS: HEMATOCRIT 27.8 % (32.4-45.2); MCH 29.4 pg (25.7-33.7); MCHC 32.2 g/dl (32.0-36.0); MEAN CELL VOLUME 91.2 fl (80-96); MEAN PLT VOLUME 9.7 fl (7.5-11.1); PLATELET COUNT 101 10^3/uL (134-434); RBC 3.05 M/mm3 (3.60-5.2); RDW 16.3 % (11.6-15.6)
[2022-03-09 07:58] LABS: CALCIUM 8.2 mg/dL (8.5-10.1)
[2022-03-09 07:59] LABS: ALBUMIN 2.6 g/dl (3.4-5.0); BLOOD UREA NITROGEN 12.7 mg/dL (7-18); MAGNESIUM 2.2 mg/dL (1.8-2.4)
[2022-03-09 08:01] LABS: BILIRUBIN,TOTAL 0.4 mg/dL (0.2-1); TOT PROT 7.1 g/dl (6.4-8.2)
[2022-03-09 08:03] LABS: PHOSPHOROUS 3.2 mg/dL (2.5-4.9)
[2022-03-09] MEDS ORDERED: PNEUMOCOCCAL 23 VACCINE 0.5 ML VIAL IM ONE (09:00)
[2022-03-09] MEDS: ASPIRIN 81 MG CHEWABLE TABLETS PO SCH (09:59)
[2022-03-09] MEDS: FAMOTIDINE 20 MG TABLET PO SCH ×2 (09:59→21:29)
[2022-03-09] MEDS: SERTRALINE HCL 50 MG TABLET (FP) PO SCH (09:59)
[2022-03-09] MEDS: oxyCODONE HCL 5 MG TABLET PO PRN ×2 (09:59→21:34)
[2022-03-09] MEDS: CLOPIDOGREL BISULFATE 75 MG TABLET (FP) PO SCH (10:01)
[2022-03-09] MEDS: DOCUSATE SODIUM 100 MG CAPSULE (FP) PO SCH (10:01)
[2022-03-09] MEDS: LIDOCAINE 5% TOPICAL PATCH TP SCH (10:01)
[2022-03-09] MEDS: ATORVASTATIN CA 80 MG TABLET (FP) PO SCH (21:28)
[2022-03-09] MEDS ORDERED: LOSARTAN POTASSIUM 25 MG TABLET PO SCH (22:00)
[2022-03-09] MEDS: ACETAMINOPHEN 325 MG TABLET (FP) PO PRN (23:04)
[2022-03-10] MEDS: INSULIN SLIDING SCALE (NOVOLOG) 1 VIAL SQ SCH ×4 (06:38→21:19)
[2022-03-10] MEDS: GABAPENTIN 300 MG CAPSULE PO SCH ×3 (06:38→21:18)
[2022-03-10 08:08] LABS: BASO % 0.1 % (0-2.0); EOS % 4.6 % (0-4.5); HEMATOCRIT 27.7 % (32.4-45.2); LYMPH % 22.2 % (8-40); MCH 29.6 pg (25.7-33.7); MCHC 32.6 g/dl (32.0-36.0); MEAN CELL VOLUME 90.8 fl (80-96); MEAN PLT VOLUME 9.2 fl (7.5-11.1); MONO % 8.7 % (3.8-10.2); NEUT % 64.4 % (42.8-82.8); PLATELET COUNT 98 10^3/uL (134-434); RBC 3.05 M/mm3 (3.60-5.2); RDW 16.6 % (11.6-15.6); WHITE BLOOD COUNT 5.2 K/mm3 (4.0-10.0)
[2022-03-10 08:33] LABS: BLOOD UREA NITROGEN 15.5 mg/dL (7-18)
[2022-03-10 08:36] LABS: BILIRUBIN,TOTAL 0.5 mg/dL (0.2-1); CALCIUM 8.3 mg/dL (8.5-10.1); CREATININE 1.2 mg/dL (0.55-1.3); MAGNESIUM 2.1 mg/dL (1.8-2.4); TOT PROT 7.1 g/dl (6.4-8.2)
[2022-03-10 08:37] LABS: ALBUMIN 2.6 g/dl (3.4-5.0)
[2022-03-10] MEDS: LIDOCAINE 5% TOPICAL PATCH TP SCH (09:44)
[2022-03-10] MEDS: CLOPIDOGREL BISULFATE 75 MG TABLET (FP) PO SCH (09:46)
[2022-03-10] MEDS: ASPIRIN 81 MG CHEWABLE TABLETS PO SCH (09:46)
[2022-03-10] MEDS: DOCUSATE SODIUM 100 MG CAPSULE (FP) PO SCH (09:46)
[2022-03-10] MEDS: FAMOTIDINE 20 MG TABLET PO SCH ×2 (09:46→21:18)
[2022-03-10] MEDS: SERTRALINE HCL 50 MG TABLET (FP) PO SCH (09:46)
[2022-03-10] MEDS: oxyCODONE HCL 5 MG TABLET PO PRN ×2 (17:08→23:33)
[2022-03-10] MEDS: ATORVASTATIN CA 80 MG TABLET (FP) PO SCH (21:17)
[2022-03-10] MEDS: LIDOCAINE PATCH REMOVAL MC SCH (21:17)
[2022-03-11] MEDS: INSULIN SLIDING SCALE (NOVOLOG) 1 VIAL SQ SCH ×2 (06:02→12:14)
[2022-03-11] MEDS: GABAPENTIN 300 MG CAPSULE PO SCH (06:03)
[2022-03-11 07:06] LABS: BASO % 0.3 % (0-2.0); EOS % 4.3 % (0-4.5); HEMATOCRIT 27.4 % (32.4-45.2); HEMOGLOBIN 8.9 GM/dL (10.7-15.3); LYMPH % 26.2 % (8-40); MCH 29.4 pg (25.7-33.7); MCHC 32.4 g/dl (32.0-36.0); MEAN CELL VOLUME 90.6 fl (80-96); MEAN PLT VOLUME 9.9 fl (7.5-11.1); MONO % 8.5 % (3.8-10.2); NEUT % 60.7 % (42.8-82.8); PLATELET COUNT 93 10^3/uL (134-434); RBC 3.03 M/mm3 (3.60-5.2); RDW 16.1 % (11.6-15.6)
[2022-03-11 07:26] LABS: ALBUMIN 2.5 g/dl (3.4-5.0); BLOOD UREA NITROGEN 15.5 mg/dL (7-18); CALCIUM 8.1 mg/dL (8.5-10.1)
[2022-03-11 07:29] LABS: CREATININE 1.1 mg/dL (0.55-1.3)
[2022-03-11 07:31] LABS: BILIRUBIN,TOTAL 0.5 mg/dL (0.2-1); TOT PROT 6.7 g/dl (6.4-8.2)
[2022-03-11] MEDS: SERTRALINE HCL 50 MG TABLET (FP) PO SCH (09:55)
[2022-03-11] MEDS: CLOPIDOGREL BISULFATE 75 MG TABLET (FP) PO SCH (09:55)
[2022-03-11] MEDS: DOCUSATE SODIUM 100 MG CAPSULE (FP) PO SCH (09:55)
[2022-03-11] MEDS: ASPIRIN 81 MG CHEWABLE TABLETS PO SCH (09:55)
[2022-03-11] MEDS: LIDOCAINE 5% TOPICAL PATCH TP SCH (09:55)
[2022-03-11] MEDS: FAMOTIDINE 20 MG TABLET PO SCH (09:55)
[2022-03-11 10:42] VITALS: BP 146/78; PULSE 70; TEMP 98.6
== END 2022-03-11 15:58 | disposition home or self-care (01) ==
LOC: JER 12:37 → INTOOBSV 16:59 → JERBED 16:59 → J4W 03-09 05:32
PROVIDERS: ADMIT Hospitalist; ATTEND Nurse Practitioner Family
PROC: 3E033NZ Introduction of Analgesics, Hypnotics, Sedatives into Peripheral Vein, Percutaneous Approach (ICD-10-PCS; principal; 2022-03-08)
PROC: 3E013VG Introduction of Insulin into Subcutaneous Tissue, Percutaneous Approach (ICD-10-PCS; 2022-03-08)
PROC: 3E0234Z Introduction of Serum, Toxoid and Vaccine into Muscle, Percutaneous Approach (ICD-10-PCS; 2022-03-08)
DX: I25.10 Atherosclerotic heart disease of native coronary artery without angina pectoris (principal); I11.9 Hypertensive heart disease without heart failure; F32.9 Major depressive disorder, single episode, unspecified; G62.9 Polyneuropathy, unspecified; E78.5 Hyperlipidemia, unspecified; E66.8 Other obesity; Z68.33 Body mass index [BMI] 33.0-33.9, adult; W18.39XA Other fall on same level, initial encounter; Y93.89 Activity, other specified; Y92.89 Other specified places as the place of occurrence of the external cause; R77.8 Other specified abnormalities of plasma proteins; E11.9 Type 2 diabetes mellitus without complications; I11.0 Hypertensive heart disease with heart failure; I50.1 Left ventricular failure, unspecified; F17.210 Nicotine dependence, cigarettes, uncomplicated; Z90.89 Acquired absence of other organs; N84.0 Polyp of corpus uteri; Z89.422 Acquired absence of other left toe(s); Z29.8 Encounter for other specified prophylactic measures
CPT/HCPCS: 36415; 70450-TC; 70486-TC; 71045-TC-FY; 71101-TC-LT-FY; 71275-TC; 73030-TC-LT-FY; 73562-TC-RT-FY; 74176-TC; 80053; 80061; 81003; 82962; 83036; 83735; 84100; 84443; 84484; 84703; 85025; 85027; 87086; 90732; 93005; 93010; 93880-TC; 94010; 94761; 95816; 96372; 96374; 99285-25; C9803-CS; G0009; G0378; U0003; U0005

== ENCOUNTER 2022-11-02 14:43 | Inpatient (IN) | payer OTHER ==
[2022-11-02 16:47] LABS: BASO % 0.3 % (0-2.0); EOS % 5.2 % (0-4.5); HEMATOCRIT 22.8 % (32.4-45.2); HEMOGLOBIN 7.2 GM/dL (10.7-15.3); LYMPH % 18.4 % (8-40); MCH 26.7 pg (25.7-33.7); MCHC 31.3 g/dl (32.0-36.0); MEAN CELL VOLUME 85.1 fl (80-96); MEAN PLT VOLUME 8.1 fl (7.5-11.1); MONO % 7.6 % (3.8-10.2); NEUT % 68.5 % (42.8-82.8); PLATELET COUNT 88 10^3/uL (134-434); RBC 2.68 M/mm3 (3.60-5.2); RDW 16.8 % (11.6-15.6); WHITE BLOOD COUNT 5.6 K/mm3 (4.0-10.0)
[2022-11-02 16:56] LABS: INR 1.04 (0.83-1.09)
[2022-11-02 17:01] LABS: CHLORIDE 95 mmol/L (98-107); SODIUM 125 mmol/L (136-145)
[2022-11-02 17:03] LABS: CALCIUM 8.9 mg/dL (8.5-10.1)
[2022-11-02 17:04] LABS: ANION GAP 10 MMOL/L (8-16); BLOOD UREA NITROGEN 28.8 mg/dL (7-18); CO2 20 mmol/L (21-32); GLUCOSE,RANDOM 198 mg/dL (74-106)
[2022-11-02 17:07] LABS: CREATININE 1.5 mg/dL (0.55-1.3); SGOT/AST 27 U/L (15-37); SGPT/ALT 19 U/L (13-61)
[2022-11-02 17:08] LABS: BILIRUBIN,TOTAL 0.7 mg/dL (0.2-1); TOT PROT 7.8 g/dl (6.4-8.2)
[2022-11-02 17:10] LABS: ALK PHOS 190 U/L (45-117)
[2022-11-02] MEDS ORDERED: DEXTROSE 50%-WATER - 25 GM/50 ML VIAL IVPUSH ONE (18:11)
[2022-11-02] MEDS ORDERED: SODIUM CHLORIDE 0.9% 500 ML INFUS.BAG IV ONE (18:11)
[2022-11-02] MEDS ORDERED: CALCIUM GLUCONATE 10% - 1,000 MG/10 ML VIAL IVPUSH ONE (18:12)
[2022-11-02] MEDS ORDERED: SODIUM BICARBONATE 8.4% 50 MEQ/50 ML DISP.SYRIN IVPUSH ONE (18:13)
[2022-11-02] MEDS ORDERED: INSULIN REGULAR HUMAN 100 UNITS/ML *VIAL IVPUSH ONE (18:14)
[2022-11-02] MEDS ORDERED: ALBUTEROL SO4 HFA INHALER IH ONE ×2 (18:16→19:07)
[2022-11-02] MEDS ORDERED: SODIUM BICARBONATE 8.4% - 50 ML ONE (19:07)
[2022-11-02] MEDS ORDERED: INSULIN REGULAR HUMAN 100 UNITS/ML *VIAL ONE (19:07)
[2022-11-02] MEDS ORDERED: DEXTROSE 50%-WATER 25 GM/50 ML DISP.SYRIN ONE (19:07)
[2022-11-02] MEDS ORDERED: CALCIUM GLUC IN NACL, ISO-OSM 1 GM/50 ML BAG IVPB ONE (19:07)
[2022-11-02] MEDS ORDERED: SODIUM CHLORIDE 1,000 ML IV SCH (22:00)
[2022-11-03 00:46] LABS: CALCIUM 8.8 mg/dL (8.5-10.1)
[2022-11-03 00:47] LABS: BLOOD UREA NITROGEN 25.3 mg/dL (7-18)
[2022-11-03] MEDS: INSULIN SLIDING SCALE (NOVOLOG) 1 VIAL SQ SCH ×5 (00:48→22:22)
[2022-11-03 00:50] LABS: CREATININE 1.2 mg/dL (0.55-1.3)
[2022-11-03 07:57] LABS: BASO % 0.4 % (0-2.0); HEMATOCRIT 25.7 % (32.4-45.2); HEMOGLOBIN 8.1 GM/dL (10.7-15.3); LYMPH % 24.7 % (8-40); MCH 26.8 pg (25.7-33.7); MCHC 31.4 g/dl (32.0-36.0); MEAN CELL VOLUME 85.3 fl (80-96); MEAN PLT VOLUME 8.8 fl (7.5-11.1); MONO % 9.6 % (3.8-10.2); NEUT % 59.3 % (42.8-82.8); PLATELET COUNT 95 10^3/uL (134-434); RBC 3.02 M/mm3 (3.60-5.2); RDW 16.6 % (11.6-15.6)
[2022-11-03] MEDS ORDERED: IRON SUCROSE INJECTION 200 MG in SODIUM CHLORIDE 90 ML IVPB ONE (08:00)
[2022-11-03 08:17] LABS: ALBUMIN 2.9 g/dl (3.4-5.0); BLOOD UREA NITROGEN 24.7 mg/dL (7-18); CALCIUM 8.9 mg/dL (8.5-10.1); MAGNESIUM 2.1 mg/dL (1.8-2.4)
[2022-11-03 08:20] LABS: CHOLESTEROL 105 mg/dL (50-200); CREATININE 1.1 mg/dL (0.55-1.3); PHOSPHOROUS 2.7 mg/dL (2.5-4.9); TRIGLYCERIDES 71 mg/dL (0-150)
[2022-11-03 08:21] LABS: LDL CHOLESTEROL (ONLY SJRH) 63 mg/dL (5-100)
[2022-11-03 08:22] LABS: BILIRUBIN,TOTAL 1.4 mg/dL (0.2-1); TOT PROT 7.6 g/dl (6.4-8.2)
[2022-11-03 08:23] LABS: HDL CHOLESTEROL 34 mg/dL (40-60)
[2022-11-03] MEDS ORDERED: SODIUM ZIRCONIUM CYCLOSILICATE (LOKELMA) 5 GM PACKET ONE (09:04)
[2022-11-03] MEDS ORDERED: PANTOPRAZOLE 40 MG TABLET PO ONE (09:04)
[2022-11-03] MEDS ORDERED: ASPIRIN 81 MG CHEWABLE TABLETS ONE (09:50)
[2022-11-03] MEDS ORDERED: CLOPIDOGREL BISULFATE 75 MG TABLET (FP) ONE (09:50)
[2022-11-03] MEDS ORDERED: metoPROLOL SUCCINATE 25 MG TAB.SR.24H (FP) PO ONE (09:50)
[2022-11-03] MEDS ORDERED: SERTRALINE HCL 50 MG TABLET (FP) ONE (09:50)
[2022-11-03] MEDS ORDERED: FAMOTIDINE 20 MG TABLET ONE (09:50)
[2022-11-03] MEDS: SODIUM ZIRCONIUM CYCLOSILICATE (LOKELMA) 5 GM PACKET PO SCH (10:00)
[2022-11-03] MEDS: metoPROLOL SUCCINATE 25 MG TAB.SR.24H (FP) PO SCH (10:00)
[2022-11-03] MEDS: SERTRALINE HCL 50 MG TABLET (FP) PO SCH (10:00)
[2022-11-03] MEDS: ASPIRIN 81 MG CHEWABLE TABLETS PO SCH (10:00)
[2022-11-03] MEDS ORDERED: FAMOTIDINE 20 MG TABLET PO SCH (10:00)
[2022-11-03] MEDS: PANTOPRAZOLE 40 MG TABLET PO SCH (10:00)
[2022-11-03] MEDS: CLOPIDOGREL BISULFATE 75 MG TABLET (FP) PO SCH (10:00)
[2022-11-03] MEDS ORDERED: SODIUM ZIRCONIUM CYCLOSILICATE (LOKELMA) 5 GM PACKET PO SCH (10:00)
[2022-11-03 10:21] LABS: URINE APPEARANCE CLEAR; URINE BILIRUBIN NEGATIVE (NEGATIVE); URINE COLOR YELLOW; URINE GLUCOSE (UA) NEGATIVE (NEGATIVE); URINE KETONE NEGATIVE (NEGATIVE); URINE LEUK ESTERASE NEGATIVE (NEGATIVE); URINE NITRITE NEGATIVE (NEGATIVE); URINE PROTEIN NEGATIVE (NEGATIVE); URINE UROBILINOGEN 0.2 mg/dL (0.2-1.0)
[2022-11-03] MEDS ORDERED: GABAPENTIN 300 MG CAPSULE ONE (13:30)
[2022-11-03] MEDS: GABAPENTIN 300 MG CAPSULE PO SCH ×2 (13:32→22:23)
[2022-11-03] MEDS ORDERED: FUROSEMIDE 40 MG/4 ML INJECTABLE VIAL IVPUSH ONE (16:45)
[2022-11-03] MEDS ORDERED: FUROSEMIDE 40 MG/4 ML INJECTABLE VIAL ONE (17:59)
[2022-11-03] MEDS ORDERED: SODIUM ZIRCONIUM CYCLOSILICATE (LOKELMA) 5 GM PACKET PO ONE (18:15)
[2022-11-03] MEDS: LOSARTAN POTASSIUM 25 MG TABLET PO SCH (22:22)
[2022-11-03] MEDS: ATORVASTATIN CA 80 MG TABLET (FP) PO SCH (22:23)
[2022-11-03] MEDS ORDERED: FLU VACC QS2022-23(6MOS UP)/PF 60 MCG/0.5 ML SYRINGE IM ONE (23:00)
[2022-11-04] MEDS: INSULIN SLIDING SCALE (NOVOLOG) 1 VIAL SQ SCH ×4 (06:04→22:07)
[2022-11-04] MEDS: GABAPENTIN 300 MG CAPSULE PO SCH ×3 (06:08→22:06)
[2022-11-04] MEDS ORDERED: IRON SUCROSE INJECTION 200 MG in SODIUM CHLORIDE 90 ML IVPB ONE (10:00)
[2022-11-04] MEDS: ASPIRIN 81 MG CHEWABLE TABLETS PO SCH (10:14)
[2022-11-04] MEDS: CLOPIDOGREL BISULFATE 75 MG TABLET (FP) PO SCH (10:14)
[2022-11-04] MEDS: SODIUM ZIRCONIUM CYCLOSILICATE (LOKELMA) 5 GM PACKET PO SCH (10:14)
[2022-11-04] MEDS: PANTOPRAZOLE 40 MG TABLET PO SCH (10:14)
[2022-11-04] MEDS: SERTRALINE HCL 50 MG TABLET (FP) PO SCH (10:14)
[2022-11-04] MEDS: metoPROLOL SUCCINATE 25 MG TAB.SR.24H (FP) PO SCH (10:14)
[2022-11-04 16:18] LABS: BASO % 0.1 % (0-2.0); EOS % 6.1 % (0-4.5); HEMATOCRIT 23.9 % (32.4-45.2); HEMOGLOBIN 7.5 GM/dL (10.7-15.3); LYMPH % 25.2 % (8-40); MCHC 31.6 g/dl (32.0-36.0); MEAN CELL VOLUME 85.4 fl (80-96); MEAN PLT VOLUME 8.7 fl (7.5-11.1); MONO % 11.9 % (3.8-10.2); NEUT % 56.7 % (42.8-82.8); PLATELET COUNT 91 10^3/uL (134-434); RDW 16.3 % (11.6-15.6); WHITE BLOOD COUNT 4.9 K/mm3 (4.0-10.0)
[2022-11-04 16:39] LABS: CALCIUM 8.8 mg/dL (8.5-10.1)
[2022-11-04 16:40] LABS: ALBUMIN 2.8 g/dl (3.4-5.0); BLOOD UREA NITROGEN 22.6 mg/dL (7-18)
[2022-11-04 16:43] LABS: CREATININE 1.2 mg/dL (0.55-1.3)
[2022-11-04 16:44] LABS: BILIRUBIN,TOTAL 0.9 mg/dL (0.2-1); TOT PROT 7.2 g/dl (6.4-8.2)
[2022-11-04 20:49] VITALS: BMI 34.2
[2022-11-04] MEDS: LOSARTAN POTASSIUM 25 MG TABLET PO SCH (22:06)
[2022-11-04] MEDS: ATORVASTATIN CA 80 MG TABLET (FP) PO SCH (22:06)
[2022-11-05] MEDS: INSULIN SLIDING SCALE (NOVOLOG) 1 VIAL SQ SCH ×4 (07:05→22:29)
[2022-11-05] MEDS: INSULIN (LEVEMIR) 100 UNITS/ML UNITS SQ SCH (07:06)
[2022-11-05] MEDS: LEVOTHYROXINE NA 25 MCG TABLET (FP) PO SCH (07:06)
[2022-11-05] MEDS: GABAPENTIN 300 MG CAPSULE PO SCH ×3 (07:06→22:29)
[2022-11-05 08:18] LABS: INR 1.21 (0.83-1.09); PROTHROMBIN TIME (PATIENT) 13.9 SEC (9.7-13.0)
[2022-11-05 08:21] LABS: HEMATOCRIT 23.7 % (32.4-45.2); HEMOGLOBIN 7.4 GM/dL (10.7-15.3); MCH 26.4 pg (25.7-33.7); MEAN CELL VOLUME 85.1 fl (80-96); MEAN PLT VOLUME 8.4 fl (7.5-11.1); PLATELET COUNT 80 10^3/uL (134-434); RBC 2.79 M/mm3 (3.60-5.2); RDW 16.5 % (11.6-15.6); WHITE BLOOD COUNT 4.1 K/mm3 (4.0-10.0)
[2022-11-05 08:29] LABS: CALCIUM 8.4 mg/dL (8.5-10.1)
[2022-11-05 08:30] LABS: ALBUMIN 2.6 g/dl (3.4-5.0); BLOOD UREA NITROGEN 22.8 mg/dL (7-18)
[2022-11-05 08:33] LABS: CREATININE 1.2 mg/dL (0.55-1.3)
[2022-11-05 08:35] LABS: TOT PROT 6.8 g/dl (6.4-8.2)
[2022-11-05] MEDS ORDERED: IRON SUCROSE INJECTION 200 MG in SODIUM CHLORIDE 90 ML IVPB ONE (10:00)
[2022-11-05] MEDS: SODIUM ZIRCONIUM CYCLOSILICATE (LOKELMA) 5 GM PACKET PO SCH (10:05)
[2022-11-05] MEDS: PANTOPRAZOLE 40 MG TABLET PO SCH (10:06)
[2022-11-05] MEDS: CLOPIDOGREL BISULFATE 75 MG TABLET (FP) PO SCH (10:06)
[2022-11-05] MEDS: SERTRALINE HCL 50 MG TABLET (FP) PO SCH (10:06)
[2022-11-05] MEDS: ASPIRIN 81 MG CHEWABLE TABLETS PO SCH (10:06)
[2022-11-05] MEDS: metoPROLOL SUCCINATE 25 MG TAB.SR.24H (FP) PO SCH (10:06)
[2022-11-05] MEDS: ATORVASTATIN CA 80 MG TABLET (FP) PO SCH (22:29)
[2022-11-05] MEDS: LOSARTAN POTASSIUM 25 MG TABLET PO SCH (22:29)
[2022-11-06] MEDS: INSULIN (LEVEMIR) 100 UNITS/ML UNITS SQ SCH (07:01)
[2022-11-06] MEDS: LEVOTHYROXINE NA 25 MCG TABLET (FP) PO SCH (07:01)
[2022-11-06] MEDS: GABAPENTIN 300 MG CAPSULE PO SCH ×3 (07:01→21:42)
[2022-11-06] MEDS: INSULIN SLIDING SCALE (NOVOLOG) 1 VIAL SQ SCH ×4 (07:02→21:45)
[2022-11-06 07:28] LABS: BASO % 0.2 % (0-2.0); EOS % 5.4 % (0-4.5); HEMATOCRIT 23.3 % (32.4-45.2); HEMOGLOBIN 7.4 GM/dL (10.7-15.3); LYMPH % 22.8 % (8-40); MCH 26.9 pg (25.7-33.7); MCHC 31.6 g/dl (32.0-36.0); MEAN PLT VOLUME 8.5 fl (7.5-11.1); MONO % 9.7 % (3.8-10.2); NEUT % 61.9 % (42.8-82.8); PLATELET COUNT 82 10^3/uL (134-434); RBC 2.74 M/mm3 (3.60-5.2); RDW 16.5 % (11.6-15.6); WHITE BLOOD COUNT 4.4 K/mm3 (4.0-10.0)
[2022-11-06 07:48] LABS: ALBUMIN 2.6 g/dl (3.4-5.0); BLOOD UREA NITROGEN 20.3 mg/dL (7-18); CALCIUM 8.5 mg/dL (8.5-10.1)
[2022-11-06 07:51] LABS: CREATININE 1.3 mg/dL (0.55-1.3)
[2022-11-06 07:53] LABS: BILIRUBIN,TOTAL 0.9 mg/dL (0.2-1); TOT PROT 6.9 g/dl (6.4-8.2)
[2022-11-06] MEDS ORDERED: FUROSEMIDE 40 MG/4 ML INJECTABLE VIAL IVPUSH SCH (08:14)
[2022-11-06] MEDS: SERTRALINE HCL 50 MG TABLET (FP) PO SCH (10:26)
[2022-11-06] MEDS: metoPROLOL SUCCINATE 25 MG TAB.SR.24H (FP) PO SCH (10:27)
[2022-11-06] MEDS: PANTOPRAZOLE 40 MG TABLET PO SCH (10:27)
[2022-11-06] MEDS: ASPIRIN 81 MG CHEWABLE TABLETS PO SCH (10:27)
[2022-11-06] MEDS: SODIUM ZIRCONIUM CYCLOSILICATE (LOKELMA) 5 GM PACKET PO SCH (10:27)
[2022-11-06] MEDS: CLOPIDOGREL BISULFATE 75 MG TABLET (FP) PO SCH (10:27)
[2022-11-06] MEDS ORDERED: FUROSEMIDE 40 MG TABLET (FP) PO ONE (12:12)
[2022-11-06] MEDS: LOSARTAN POTASSIUM 25 MG TABLET PO SCH (21:41)
[2022-11-06] MEDS: ATORVASTATIN CA 80 MG TABLET (FP) PO SCH (21:42)
[2022-11-07] MEDS: INSULIN (LEVEMIR) 100 UNITS/ML UNITS SQ SCH (06:41)
[2022-11-07] MEDS: LEVOTHYROXINE NA 25 MCG TABLET (FP) PO SCH (06:41)
[2022-11-07] MEDS: GABAPENTIN 300 MG CAPSULE PO SCH ×2 (06:41→13:58)
[2022-11-07] MEDS: INSULIN SLIDING SCALE (NOVOLOG) 1 VIAL SQ SCH ×3 (06:43→17:58)
[2022-11-07] MEDS: CLOPIDOGREL BISULFATE 75 MG TABLET (FP) PO SCH (09:57)
[2022-11-07] MEDS: ASPIRIN 81 MG CHEWABLE TABLETS PO SCH (09:57)
[2022-11-07] MEDS: SERTRALINE HCL 50 MG TABLET (FP) PO SCH (09:57)
[2022-11-07] MEDS: metoPROLOL SUCCINATE 25 MG TAB.SR.24H (FP) PO SCH (09:58)
[2022-11-07] MEDS: PANTOPRAZOLE 40 MG TABLET PO SCH (09:58)
[2022-11-07] MEDS: SODIUM ZIRCONIUM CYCLOSILICATE (LOKELMA) 5 GM PACKET PO SCH (09:58)
[2022-11-07 17:11] VITALS: RESP 20
[2022-11-07 19:26] VITALS: BP 157/81; PULSE 69; TEMP 98
[2022-11-08] MEDS ORDERED: FUROSEMIDE 40 MG TABLET (FP) PO SCH (10:00)
== END 2022-11-07 19:30 | disposition home or self-care (01) | DRG 811 ==
LOC: JER 14:43 → JERBED 18:17 → J4W 11-03 20:58
PROVIDERS: ADMIT Internal Medicine; ATTEND Family Medicine
PROC: 30233N1 Transfusion of Nonautologous Red Blood Cells into Peripheral Vein, Percutaneous Approach (ICD-10-PCS; principal; 2022-11-02)
DX: D50.9 Iron deficiency anemia, unspecified (principal); I50.33 Acute on chronic diastolic (congestive) heart failure; D69.3 Immune thrombocytopenic purpura; E87.1 Hypo-osmolality and hyponatremia; N17.9 Acute kidney failure, unspecified; E78.5 Hyperlipidemia, unspecified; I25.10 Atherosclerotic heart disease of native coronary artery without angina pectoris; E87.5 Hyperkalemia; J45.909 Unspecified asthma, uncomplicated; K74.60 Unspecified cirrhosis of liver; I25.2 Old myocardial infarction; F17.210 Nicotine dependence, cigarettes, uncomplicated; E87.70 Fluid overload, unspecified; I11.0 Hypertensive heart disease with heart failure; E03.9 Hypothyroidism, unspecified; D69.6 Thrombocytopenia, unspecified; E11.42 Type 2 diabetes mellitus with diabetic polyneuropathy; Z89.512 Acquired absence of left leg below knee; Z95.5 Presence of coronary angioplasty implant and graft
CPT/HCPCS: 0241U-QW; 36415; 36430; 36511; 70450-TC; 76705-TC; 80048; 80053; 80061; 81003; 82105; 82272; 82550; 82570; 82607; 82728; 82746; 82962; 83010; 83036; 83540; 83550; 83615; 83735; 83930; 83935; 84100; 84156; 84439; 84443; 84484; 84702; 85025; 85027; 85045; 85610; 85730; 86704; 86803; 86850; 86900; 86901; 86922; 87086; 87340; 87517; 93005; 93010; 99285-25; G0008; J1756; P9038; P9058; Q2036